=== PATIENT | male | born 1980 | race Caucasian/White ===

== ENCOUNTER 2021-10-17 21:10 | Emergency (ER) | payer OTHER ==
[2021-10-17 21:29] VITALS: RESP 18; TEMP 97.2
[2021-10-17] MEDS ORDERED: IPRATROPIUM-ALBUTEROL 3 ML NEB INHALATION STA (23:06)
--- NOTE | 2021-10-17 23:30 | XR ---
EXAMINATION TYPE: XR chest 2V DATE OF EXAM: 10/17/2021 COMPARISON: NONE HISTORY: Cough TECHNIQUE: FINDINGS: Heart and mediastinum are normal. Lungs are clear. Diaphragm is normal. Bony thorax is inta ct. IMPRESSION: Normal chest.
[2021-10-17] MEDS ORDERED: ALBUTEROL HFA INHALER INHALATION STA ×2 (23:44)
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
[2021-10-18] MEDS ORDERED: predniSONE 20 MG TAB PO STA (00:12)
[2021-10-18] MEDS ORDERED: ALBUTEROL NEBULIZED 2.5 MG/3 ML INHALATION STA (00:18)
[2021-10-18] MEDS ORDERED: ALBUTEROL HFA INHALER INHALATION STA (00:20)
[2021-10-18] MEDS ORDERED: IBUPROFEN 400 MG TAB PO STA (00:28)
[2021-10-18 01:06] VITALS: BP 130/74; PULSE 84
== END 2021-10-18 01:36 | disposition home or self-care (01) ==
LOC: EC 21:10
DX: J20.9 Acute bronchitis, unspecified (principal); I10 Essential (primary) hypertension; F17.200 Nicotine dependence, unspecified, uncomplicated; F12.90 Cannabis use, unspecified, uncomplicated
CPT/HCPCS: 94640 ×2; 87635; 71046; 99285; J7512